=== PATIENT | female | born 1945 | race Caucasian/White ===

== ENCOUNTER → 2016-06-03 | Outpatient (CLI) | payer OTHER, BC ==
[2016-06-03 09:42] LABS: BASO % 0.4 %; BASO ABS # 0.02 K/uL (0-0.2); COMPLETE YES; EOS % 3.2 %; HEMATOCRIT 42.2 % (37-47); LYMPH ABS # 2.41 K/uL (1.2-3.4); MEAN CELL VOLUME 92.5 fL (80-100); MEAN CORPUSCULAR HEMOGLOBIN 31.6 pg (25-34); MEAN CORPUSCULAR HGB CONC 34.1 g/dl (32-36); MEAN PLATELET VOLUME 12.7 fL (7.4-10.4); MONO % 6.5 %; NEUT % 44.9 %; PLATELET COUNT 278 K/uL (130-400); RED BLOOD COUNT 4.56 M/uL (4.2-5.4); WHITE BLOOD COUNT 5.35 K/uL (4.8-10.8)
== END | disposition home or self-care (01) ==
LOC: C.LAB 08:22
PROVIDERS: ATTEND Internal Medicine Geriatric Medicine
DX: D72.819 Decreased white blood cell count, unspecified (principal)

== ENCOUNTER → 2016-10-14 | Outpatient (CLI) | payer OTHER, BC ==
[2016-10-14 09:35] LABS: BASO % 1.2 %; BASO ABS # 0.06 K/uL (0-0.2); COMPLETE YES; EOS % 4.2 %; HEMATOCRIT 42.9 % (37-47); LYMPH % 42.1 %; LYMPH ABS # 2.12 K/uL (1.2-3.4); MEAN CELL VOLUME 92.3 fL (80-100); MEAN CORPUSCULAR HEMOGLOBIN 30.8 pg (25-34); MEAN CORPUSCULAR HGB CONC 33.3 g/dl (32-36); MEAN PLATELET VOLUME 12.1 fL (7.4-10.4); NEUT % 47.5 %; PLATELET COUNT 289 K/uL (130-400); RED BLOOD COUNT 4.65 M/uL (4.2-5.4); WHITE BLOOD COUNT 5.04 K/uL (4.8-10.8)
[2016-10-14 09:51] LABS: ALT/SGPT 31 U/L (12-78); BLOOD UREA NITROGEN 20 mg/dl (7-18); BUN/CREATININE RATIO 25.1 (10-20); CALCIUM 9.5 mg/dl (8.5-10.1); CARBON DIOXIDE 25 mmol/L (21-32); CHLORIDE 110 mmol/L (98-107); CHOLESTEROL 184 mg/dl (0-200); CREATININE 0.78 mg/dl (0.60-1.20); GLUCOSE 103 mg/dl (70-99); POTASSIUM 4.4 mmol/L (3.5-5.1); SODIUM 143 mmol/L (136-145); TRIGLYCERIDES 69 mg/dl (0-150); VERY LOW DENSITY LIPOPROT CALC 14 mg/dl
[2016-10-14 10:02] LABS: ALKALINE PHOSPHATASE 77 U/L (45-117); AST/SGOT 20 U/L (15-37); CHOLESTEROL/HDL RATIO 3.2; HDL CHOLESTEROL 58 mg/dl; LDL CHOLESTEROL CALCULATED 112 mg/dl
--- NOTE | 2016-10-20 08:11 | CODING QUERY MEDICAL NECESSITY ---
SUPPORTING DIAGNOSIS NEEDED Dr. Castro, A supporting diagnosis is required for the test/procedure performed on this patient in order for us to be reimbursed by the patient's insurance. Please provide a supporting diagnosis for the following test/procedure listed below next to the test name along with your signature. *If there is no additional diagnosis for this patient that would support the following test/procedure please document that below next to the test/procedure. Test(s)/Procedure(s) that require a supporting diagnosis: * ([id number]) VITAMIN D ASSAY DIAGNOSIS: DATE OF SERVICE: 10/14/16 Provider Signature: Date: Thank you [facility] Information Management Once completed, please kindly fax back to [phone] For questions please call [phone]
== END | disposition home or self-care (01) ==
LOC: C.LAB 07:17
PROVIDERS: ATTEND Internal Medicine Geriatric Medicine
DX: I10 Essential (primary) hypertension (principal); E78.5 Hyperlipidemia, unspecified; D72.819 Decreased white blood cell count, unspecified; M81.0 Age-related osteoporosis without current pathological fracture

== ENCOUNTER → 2016-12-11 | Outpatient (CLI) | payer OTHER, BC | END | disposition home or self-care (01) | LOC: C.LABBC 14:33 | PROVIDERS: ATTEND Internal Medicine Geriatric Medicine | DX: Z00.00 Encounter for general adult medical examination without abnormal findings (principal) ==

== ENCOUNTER → 2017-01-06 | Outpatient (CLI) | payer OTHER, BC ==
[2017-01-06 15:20] LABS: CALCIUM URINE 8.4 mg/dl
[2017-01-07 17:09] LABS: ALBUMIN 4.2 G/DL (3.8-4.8); TOTAL PROTEIN 7.1 G/DL (6.2-8.3)
== END | disposition home or self-care (01) ==
LOC: C.LAB1850 06:55
PROVIDERS: ATTEND Internal Medicine Rheumatology
DX: M81.0 Age-related osteoporosis without current pathological fracture (principal); R13.10 Dysphagia, unspecified; M48.50XA Collapsed vertebra, not elsewhere classified, site unspecified, initial encounter for fracture; E61.8 Deficiency of other specified nutrient elements

== ENCOUNTER → 2017-02-25 | Outpatient (CLI) | payer OTHER, BC ==
[~2017-02-25] MED LIST: ACET-1311 PO; AMLO-114 PO; ATOR-22 PO; CALCCAP15 PO; CHOL1000 PO; IBUP-103 PO; LISI-725 PO; MULT-225 PO; PRLSR20 PO; TERI600S SQ; WHEACHW PO
== END | disposition home or self-care (01) ==
LOC: C.LABBC 14:04
PROVIDERS: ATTEND Internal Medicine Rheumatology
DX: E61.8 Deficiency of other specified nutrient elements (principal); M81.0 Age-related osteoporosis without current pathological fracture; M48.50XA Collapsed vertebra, not elsewhere classified, site unspecified, initial encounter for fracture; X58.XXXA Exposure to other specified factors, initial encounter

== ENCOUNTER 2020-07-20 16:02 | Inpatient (IN) ==
[2020-07-20] MEDS ORDERED: dexAMETHasone**PF** 10 MG/ML VIAL IV ONE (17:55)
--- NOTE | 2020-07-20 18:09 | XRay Report ---
XR chest 1V portable HISTORY: Dyspnea COMPARISON: Chest 07/16/2020. FINDINGS: No pneumothorax. No pleural effusions. The cardiac silhouette remains top normal in size. T here appears to be hazy airspace opacities within the right lower lobe and left midlung zone. This is consistent with a mild viral pneumonia. This is similar to prior study. IMPRESSION: Redemonstration of the faint airspace opacities consistent with a viral pneumonia. ACT 112: Negative or not required by law. Electronically signed by: Noam Sepulveda M.D. 07/20/2020 6:08 PM
[2020-07-20 18:15] LABS: Basophils # (auto) 0.01 K/uL (0-0.2); Basophils % (auto) 0.2 %; Eosinophils # (auto) 0.01 K/uL (0-0.5); Eosinophils % (auto) 0.2 %; Hematocrit (blood only) 40.2 % (37-47); Hemoglobin 14.5 g/dL (12.0-16.0); Immature Granulocytes # (auto) 0.01 K/uL (0.00-0.02); Immature Granulocytes % (auto) 0.2 %; Lymphocytes % (auto) 13.6 %; Mean Corpuscular Hgb Conc 36.1 g/dL (32-36); Mean Corpuscular Volume 88.7 fL (80-100); Mean Platelet Volume 11.1 fL (7.4-10.4); Monocytes # (auto) 0.46 K/uL (0.11-0.59); Monocytes % (auto) 7.8 %; Neutrophils # (auto) 4.61 K/uL (1.4-6.5); Platelet Count 261 K/uL (130-400); RDW Coefficient of Variation 12.8 % (11.5-14.5); RDW Standard Deviation 41.5 fL (36.4-46.3); Red Blood Count 4.53 M/uL (4.2-5.4)
[2020-07-20 18:30] LABS: Partial Thromboplastin Ratio 1.1; Partial Thromboplastin Time 28.1 Seconds (21.0-31.0); Prothrombin Time 9.8 Seconds (9.0-12.0)
[2020-07-20 18:35] LABS: D Dimer 840 ug/L FEU (0-500)
[2020-07-20 18:36] LABS: Alanine Aminotransferase 29 U/L (12-78); Albumin Level 3.1 gm/dl (3.4-5.0); Aspartate Aminotransferase 37 U/L (15-37); Blood Urea Nitrogen 14 mg/dl (7-18); Calcium 8.4 mg/dl (8.5-10.1); Carbon Dioxide 25 mmol/L (21-32); Chloride 105 mmol/L (98-107); Creatinine Clr Calc Pharmacy 54.2 ml/min; Est GFR (African American) 94.9; Est GFR (Non-African American) 81.9; Glucose 105 mg/dl (70-99); Potassium 3.6 mmol/L (3.5-5.1); Sodium 137 mmol/L (136-145)
[2020-07-20 18:41] LABS: Albumin Globulin Ratio 0.7 (0.9-2); Alkaline Phosphatase 85 U/L (45-117); Bilirubin,Total 0.6 mg/dl (0.2-1); Globulin 4.2 gm/dl (2.5-4.0); NT Pro B Type Natriuretic Pept 209 pg/ml (0-900); Total Protein 7.3 gm/dl (6.4-8.2); Troponin I < 0.015 ng/ml (0-0.045)
[2020-07-20 19:17] LABS: Influenza A virus by PCR Negative (Neg); Influenza B virus by PCR Negative (Neg); RSV by PCR Negative (Neg)
[2020-07-20] MEDS ORDERED: LEVALBUTEROL TARTRATE 15 GM HFA.AER.AD INH STA (19:36)
[2020-07-20 19:38] LABS: SARS CoV2 RNA(COVID-19) InHosp POSITIVE (Negative)
[2020-07-20 19:46] LABS: Magnesium 1.8 mg/dl (1.8-2.4)
[2020-07-20 20:09] LABS: Base Excess ABG 1.8 mEq/L (-9-1.8); HCO3 ABG 22 mmol/L (19-24); Oxygen Saturation ABG 97.3 % (90-95); PCO2 ABG 24 mmHg (35-46); PO2 ABG 80 mmHg (80-95)
--- NOTE | 2020-07-20 20:13 | History & Physical Report ---
Date of Service July 20, 2020 Assessment & Plan (1) Acute hypoxemic respiratory failure: Secondary to severe COVID-19 pneumonia with superimposed bacterial infection No overt sepsis for now hypertension, stable hyperlipidemia on statin Rx Medical telemetry Supplemental O2 Baseline ABG Decadron, Remdesivir (Patient was counseled regarding potential adverse effects from Remdesivir therapy and provided with patient education sheet. Patient also agreeable to convalescent plasma if warranted. Verbal consent obtained for blood product administration.) Doxycycline for complicated atypical pneumonia Pulmonary consult if without improvement. DVT prophylaxis. Lovenox subcu Full code Text document was generated using [employer] voice recognition software. It may contain grammatical or spelling errors. Kindly contact undersigned for clarification of any documentation item in question. History of Present Illness Chief Complaint: Low O2 on pulse ox, shortness of breath Primary Care Provider: Wendi Kenney MD History obtained from patient and records. Medical history significant for hypertension, hyperlipidemia, GERD, coronary artery calcification as per records. Patient was vacationing in [place] 2 weeks ago when she noted flulike symptoms, dry cough, body aches, nausea, poor appetite. Second outpatient COVID-19 test in [place] was positive. Patient and her drove home to [place] shortly after positive test resulted. Patient seen at the ER 4 days ago for worsening symptoms. Patient subsequently discharged home. Dry cough symptoms noted to be junky without chest pain. Worsening shortness of breath with low pulse ox of 80s at home. Patient returned to the ER this afternoon. IV Decadron administered at the ER. Medical History as above Surgical History : Breast reduction, BTL, tonsillectomy/adenoidectomy, left radius/ulna surgery, tibia fracture surgery, knee surgery Family History : Colon cancer, heart disease, throat cancer Personal/Social history : Non-smoker, occasional EtOH intake, retired schoolteacher Allergies Allergy/AdvReac Type Severity Reaction Status Date / Time adhesive tape AdvReac Mild skin Verified 07/20/20 18:06 sensitive shrimp AdvReac Mild itching Verified 07/20/20 18:06 Home Medications Medication Instructions Recorded Confirmed Type Benefiber Healthy Shape 0 g PO QAM 12/08/18 07/20/20 History amlodipine [Norvasc] 10 mg PO HS 12/08/18 07/20/20 History atorvastatin [Lipitor] 20 mg PO HS 12/08/18 07/20/20 History cholecalciferol (vitamin D3) 1,000 unit PO HS 12/08/18 07/20/20 History [Vitamin D3] latanoprost 1 drp OPB HS 12/08/18 07/20/20 History lisinopril 20 mg PO HS 12/08/18 07/20/20 History omeprazole magnesium [Prilosec OTC] 20 mg PO HS 12/08/18 07/20/20 History aspirin [Aspirin Low Dose] 81 mg PO HS 07/16/20 07/20/20 History Past Med/Surg History Medical History (Updated 07/20/20 @ 21:05 by Francesco Redd MD) Compression fracture LUMBAR AREA GERD (gastroesophageal reflux disease) Glaucoma Hyperlipidemia Hypertension Mitral valve prolapse "ECHO AUGUST 2018 WNL" Osteoporosis Surgical History History of bilateral tubal ligation History of cataract surgery left History of colonoscopy History of esophagogastroduodenoscopy (EGD) History of open reduction and internal fixation (ORIF) procedure LEFT WRIST (HARDWARE REMOVED) History of tonsillectomy and adenoidectomy History of tooth extraction Patellar fracture RT KNEE REPAIRED Family History Mother Family history of esophageal cancer Father Family hx of colon cancer Social History Smoking Status: Never smoker Second Hand Exposure: No; Hx Alcohol Use: Yes Alcohol type: other Hx Substance Use: No Preferred Language: Faroese Communication Ability: Effective Town Clerk Required: No Beliefs That Will Affect Care: None Current Living Situation: Spouse Feels Safe at Home: Yes Safety Concerns: Feels Safe At This Time Assistive Devices: Oxygen - Continuous Review of Systems Review of Systems: As per HPI, all 10 systems reviewed, all other ROS negative Physical Exam Physical Exam: GENERAL: Comfortable, pleasant, no respiratory distress SKIN: Normal color, warm HEENT: [employer] palpebral conjunctivae, no ptosis, moist buccal mucosa, nasal cannula in place NECK : Supple, no tenderness CHEST : Decreased breath sounds , no tenderness HEART : RRR, no obvious murmurs ABDOMEN: Some distention, nontender EXTREMITIES : Minimal LE swelling, no LE tenderness, no other conspicuous deformities noted NEUROLOGIC : Coherent, no facial asymmetry, no other gross focality Results & Data Results & Data ([facility]) Vital Signs (Past 12 Hours) Vital Signs Temp Pulse Resp BP Pulse Ox 07/20/20 19:00 80 17 128/76 95 07/20/20 18:30 78 19 117/61 95 07/20/20 18:00 82 16 129/67 97 07/20/20 17:30 94 H 21 124/74 93 07/20/20 16:20 36.5 C 95 H 20 124/76 94 Laboratory Results Laboratory Results WBC 5.90 K/uL (4.8-10.8) 07/20/20 17:57 RBC 4.53 M/uL (4.2-5.4) 07/20/20 17:57 Hgb 14.5 g/dL (12.0-16.0) 07/20/20 17:57 Hct 40.2 % (37-47) 07/20/20 17:57 MCV 88.7 fL (80-100) 07/20/20 17:57 MCH 32.0 pg (25-34) 07/20/20 17:57 MCHC 36.1 g/dL (32-36) H 07/20/20 17:57 RDW Std Deviation 41.5 fL (36.4-46.3) 07/20/20 17:57 RDW Coeff of Colleen 12.8 % (11.5-14.5) 07/20/20 17:57 Plt Count 261 K/uL (130-400) 07/20/20 17:57 MPV 11.1 fL (7.4-10.4) H 07/20/20 17:57 Immature Gran % (Auto) 0.2 % 07/20/20 17:57 Neut % (Auto) 78.0 % 07/20/20 17:57 Lymph % (Auto) 13.6 % 07/20/20 17:57 [place] % (Auto) 7.8 % 07/20/20 17:57 Eos % (Auto) 0.2 % 07/20/20 17:57 Baso % (Auto) 0.2 % 07/20/20 17:57 Neut # (Auto) 4.61 K/uL (1.4-6.5) 07/20/20 17:57 Lymph # (Auto) 0.80 K/uL (1.2-3.4) L 07/20/20 17:57 [place] # (Auto) 0.46 K/uL (0.11-0.59) 07/20/20 17:57 Eos # (Auto) 0.01 K/uL (0-0.5) 07/20/20 17:57 Baso # (Auto) 0.01 K/uL (0-0.2) 07/20/20 17:57 Immature Gran # (Auto) 0.01 K/uL (0.00-0.02) 07/20/20 17:57 PT 9.8 Seconds (9.0-12.0) 07/20/20 17:57 INR 1.0 (0.9-1.1) 07/20/20 17:57 APTT 28.1 Seconds (21.0-31.0) 07/20/20 17:57 PTT Ratio 1.1 07/20/20 17:57 D-Dimer 840 ug/L FEU (0-500) H* 07/20/20 17:57 Sodium 137 mmol/L (136-145) 07/20/20 17:57 Potassium 3.6 mmol/L (3.5-5.1) 07/20/20 17:57 Chloride 105 mmol/L (98-107) 07/20/20 17:57 Carbon Dioxide 25 mmol/L (21-32) 07/20/20 17:57 Anion Gap 7.0 (3-11) 07/20/20 17:57 BUN 14 mg/dl (7-18) 07/20/20 17:57 Creatinine 0.72 mg/dl (0.6-1.2) 07/20/20 17:57 Est Cr Clr Drug Dosing 54.2 ml/min 07/20/20 17:57 Est GFR ( Amer) 94.9 07/20/20 17:57 Est GFR (Non-Af Amer) 81.9 07/20/20 17:57 BUN/Creatinine Ratio 19.0 (10-20) 07/20/20 17:57 Glucose 105 mg/dl (70-99) H 07/20/20 17:57 Calcium 8.4 mg/dl (8.5-10.1) L 07/20/20 17:57 Magnesium 1.8 mg/dl (1.8-2.4) 07/20/20 17:57 Total Bilirubin 0.6 mg/dl (0.2-1) 07/20/20 17:57 AST 37 U/L (15-37) 07/20/20 17:57 ALT 29 U/L (12-78) 07/20/20 17:57 Alkaline Phosphatase 85 U/L (45-117) 07/20/20 17:57 Troponin I < 0.015 ng/ml (0-0.045) 07/20/20 17:57 NT-Pro-B Natriuret Pep 209 pg/ml (0-900) 07/20/20 17:57 Total Protein 7.3 gm/dl (6.4-8.2) 07/20/20 17:57 Albumin 3.1 gm/dl (3.4-5.0) L 07/20/20 17:57 Globulin 4.2 gm/dl (2.5-4.0) H 07/20/20 17:57 Albumin/Globulin Ratio 0.7 (0.9-2) L 07/20/20 17:57 COVID-19 Eval Order CovFluRsv at [facility] 07/20/20 17:30 SARS-CoV-2 (PCR) POSITIVE (Negative) A* 07/20/20 17:30 Influenza Type A (PCR) Negative (Neg) 07/20/20 17:30 Influenza Type B (PCR) Negative (Neg) 07/20/20 17:30 RSV (RT-PCR) Negative (Neg) 07/20/20 17:30 Impressions Chest X-Ray 07/20/20 17:05 XR chest 1V portable HISTORY: Dyspnea COMPARISON: Chest 07/16/2020. FINDINGS: No pneumothorax. No pleural effusions. The cardiac silhouette remains top normal in size. There appears to be hazy airspace opacities within the right lower lobe and left midlung zone. This is consistent with a mild viral pneumonia. This is similar to prior study. IMPRESSION: Redemonstration of the faint airspace opacities consistent with a viral pneumonia. ACT 112: Negative or not required by law. Electronically signed by: Noam Sepulveda M.D. 07/20/2020 6:[address] chest initial read: No pulmonary emboli are identified. No aneurysm or dissection. Heart is mildly enlarged. No pericardial effusion. 2.6 cm hiatal hernia. Moderate scattered interstitial infiltrates and linear densities throughout both lungs consistent with viral atypical pneumonia. No pneumothorax or pleural effusion is seen. EKG as per my interpretation : Rate 80, NSR, normal axis, T wave flattening septal leads
--- NOTE | 2020-07-20 20:14 | Emergency Department Note ---
Impression & Plan COVID-19, Hypoxia ED Provider Note INFORMANT: Patient ED PROVIDER(S): Rex Sarkar MD CHIEF COMPLAINT: Hypoxia PLAN: Disposition: Admitted Condition: Good Outpatient prescription management: none Referral: None MEDICAL DECISION MAKING: Patient presented to the emergency department noting hypoxia. Her oxygen saturation was as low as 88 % on her physical examination. She responded well to supplemental nasal cannula oxygen. She did feel much better with this. She was given IV Decadron. Chest x-ray was performed and does show findings consistent with a viral pneumonia process. Patient's CBC and chemistry panel are unremarkable. Troponin negative. EKG was unremarkable as well. The patient's D-dimer was mildly elevated CT PE study was performed. [facility] Triage Nursing notes reviewed and agree them. Prior medical records reviewed regarding her visit on July 16 Vital Signs: reviewed and remarkable for hypoxia Differential diagnosis: Complications of COVID-19 reactive airway disease, pneumonia, pneumothorax, COPD, CHF, infections, cardiac ischemia, pulmonary embolism, musculoskeletal, gastrointestinal, as well as other pathologies. Diagnostics interpreted by me: ECG: Twelve-lead ECG reveals a normal sinus rhythm at [address] elevation or depression. No PACs or PVCs. Normal axis and QRS. Cardiac Monitoring: Cardiac monitoring ordered by me: The patient was placed on continuous cardiac monitoring and observed. It revealed a normal sinus rhythm at 80 beats per minute without ectopy or evidence of dysrhythmia. Imaging studies: Chest x-ray shows a viral pneumonia process CT PE study pending. [facility] HPI: The patient is a 75 year old female who presents to the Emergency Room with complaints of hypoxia. This started today and is persisting. The patient was diagnosed with COVID-19 about 10 days ago. She contracted the disease in [place]. She returned home. She was seen in the ER on July 16. Her x-ray and oxygen saturations were adequate at that time. She went home with a pulse oximeter. Today she noted worsening symptoms and her pulse oximeter was as low as 86%.. The patient also notes the following associated symptoms, transient nausea. The patient has found no relieving factors. Current pain is rated as 0/10. Pt denies LOC, headache, fevers, chills, diaphoresis, visual changes, neck pain, chest pain, vomiting, abdominal pain, back pain, melena, hematochezia, urinary symptoms, numbness, weakness, lymphadenopathy, rash, or other complaints. ROS: See above HPI for pertinent positives & negatives. A total of 10 systems reviewed and were otherwise negative. PAST MEDICAL HISTORY:See Below , hypertension PAST SURGICAL HISTORY:See Below, FAMILY HISTORY:See Below SOCIAL HISTORY:See Below, HOME MEDICATIONS:See Below ALLERGIES:See Below VITALS:See Below PHYSICAL EXAMINATION: GENERAL: Awake, alert, mildly dyspneic-appearing, in no distress HENT: Normocephalic, atraumatic. Oropharynx unremarkable. EYES: Normal conjunctiva. Sclera non-icteric. NECK: Inspection normal. Non-tender. Supple. No nuchal rigidity. FROM. No masses. RESPIRATORY: Clear to auscultation. No wheezes. No rales. Mild increased respiratory effort. CARDIAC: Normal rate. Normal rhythm. No murmurs. No rubs. Extremities warm and well perfused. Pulses equal. No JVD. GI: Soft, non-distended. No tenderness to palpation. No rebound or guarding. No masses. RECTAL: Deferred. MUSCULOSKELETAL: Atraumatic. Chest examination reveals no tenderness. The back is symmetrical on inspection without obvious abnormality. There is no CVA tenderness to palpation. No joint edema. LOWER EXTREMITIES: Calves are equal size bilaterally and non-tender. No edema. No discoloration. NEURO: Normal sensorium. No sensory or motor deficits noted. SKIN: No rash or jaundice noted. Rex Sarkar MD Past Med/Surg History Medical History (Updated 07/20/20 @ 20:11 by Rex Sarkar MD) Compression fracture LUMBAR AREA GERD (gastroesophageal reflux disease) Glaucoma Hyperlipidemia Hypertension Mitral valve prolapse "ECHO AUGUST 2018 WNL" Osteoporosis Surgical History History of bilateral tubal ligation History of cataract surgery left History of colonoscopy History of esophagogastroduodenoscopy (EGD) History of open reduction and internal fixation (ORIF) procedure LEFT WRIST (HARDWARE REMOVED) History of tonsillectomy and adenoidectomy History of tooth extraction Patellar fracture RT KNEE REPAIRED Family History Mother Family history of esophageal cancer Father Family hx of colon cancer Social History Smoking Status: Never smoker Second Hand Exposure: No; Hx Alcohol Use: Yes Alcohol type: hard liquor Hx Substance Use: No Preferred Language: Korean Communication Ability: Effective 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 Beliefs That Will Affect Care: None Current Living Situation: Spouse Feels Safe at Home: Yes Assistive Devices: Glasses Allergies Allergies Allergy/AdvReac Type Severity Reaction Status Date / Time adhesive tape AdvReac Mild skin Verified 07/20/20 18:06 sensitive shrimp AdvReac Mild itching Verified 07/20/20 18:06 Home Meds Home Medications Medication Instructions Recorded Confirmed Benefiber Healthy Shape 0 g PO QAM 12/08/18 07/20/20 amlodipine [Norvasc] 10 mg PO HS 12/08/18 07/20/20 atorvastatin [Lipitor] 20 mg PO HS 12/08/18 07/20/20 cholecalciferol (vitamin D3) 1,000 unit PO HS 12/08/18 07/20/20 [Vitamin D3] latanoprost 1 drp OPB HS 12/08/18 07/20/20 lisinopril 20 mg PO HS 12/08/18 07/20/20 omeprazole magnesium [Prilosec OTC] 20 mg PO HS 12/08/18 07/20/20 aspirin [Aspirin Low Dose] 81 mg PO HS 07/16/20 07/20/20 Results & Data (ED) Vital Signs Vital Signs - 24 hr 07/20/20 16:20 07/20/20 17:30 07/20/20 18:00 Temperature 36.5 C Temperature Source Temporal Artery Scan Pulse Rate 95 H 94 H 82 Pulse Rate from SpO2 Sensor 94 H 82 Respiratory Rate 20 21 16 Respiratory Effort / Characteristics Non-Labored Respiratory Depth Normal Blood Pressure 124/76 124/74 129/67 Blood Pressure Mean 92 90 87 Pulse Oximetry 94 93 97 Oxygen Delivery Method Room Air Nasal Cannula Oxygen Flow Rate 2 Sepsis Recent Fever Within 48 Hours No Sepsis New/Unexplained Change in Mental Status N/A Sepsis Action Taken by Nursing No Action Required 07/20/20 18:30 07/20/20 19:00 Temperature Temperature Source Pulse Rate 78 80 Pulse Rate from SpO2 Sensor 79 80 Respiratory Rate 19 17 Respiratory Effort / Characteristics Respiratory Depth Blood Pressure 117/61 128/76 Blood Pressure Mean 79 93 Pulse Oximetry 95 95 Oxygen Delivery Method Oxygen Flow Rate Sepsis Recent Fever Within 48 Hours Sepsis New/Unexplained Change in Mental Status Sepsis Action Taken by Nursing Laboratory Data Result diagrams: 07/20/20 17:57 07/20/20 17:57 Lab Results 07/20/20 07/20/20 07/20/20 Range/Units 17:30 17:30 17:57 WBC 5.90 (4.8-10.8) K/uL RBC 4.53 (4.2-5.4) M/uL Hgb 14.5 (12.0-16.0) g/dL Hct 40.2 (37-47) % MCV 88.7 (80-100) fL MCH 32.0 (25-34) pg MCHC 36.1 H (32-36) g/dL RDW Std Deviation 41.5 (36.4-46.3) fL RDW Coeff of Colleen 12.8 (11.5-14.5) % Plt Count 261 (130-400) K/uL MPV 11.1 H (7.4-10.4) fL Immature Gran % (Auto) 0.2 % Neut % (Auto) 78.0 % Lymph % (Auto) 13.6 % [place] % (Auto) 7.8 % Eos % (Auto) 0.2 % Baso % (Auto) 0.2 % Neut # (Auto) 4.61 (1.4-6.5) K/uL Lymph # (Auto) 0.80 L (1.2-3.4) K/uL [place] # (Auto) 0.46 (0.11-0.59) K/uL Eos # (Auto) 0.01 (0-0.5) K/uL Baso # (Auto) 0.01 (0-0.2) K/uL Immature Gran # (Auto) 0.01 (0.00-0.02) K/uL PT (9.0-12.0) Seconds INR (0.9-1.1) APTT (21.0-31.0) Seconds PTT Ratio D-Dimer (0-500) ug/L FEU ABG pH (7.35-7.45) ABG pCO2 (35-46) mmHg ABG pO2 (80-95) mmHg ABG HCO3 (19-24) mmol/L ABG O2 Saturation (90-95) % ABG Base Excess (-9-1.8) mEq/L Dieter Test (Pos) Barometric Pressure mm/Hg Oxygen Given Sodium (136-145) mmol/L Potassium (3.5-5.1) mmol/L Chloride (98-107) mmol/L Carbon Dioxide (21-32) mmol/L Anion Gap (3-11) BUN (7-18) mg/dl Creatinine (0.6-1.2) mg/dl Est Cr Clr Drug Dosing ml/min Est GFR ( Amer) Est GFR (Non-Af Amer) BUN/Creatinine Ratio (10-20) Glucose (70-99) mg/dl Calcium (8.5-10.1) mg/dl Magnesium (1.8-2.4) mg/dl Total Bilirubin (0.2-1) mg/dl AST (15-37) U/L ALT (12-78) U/L Alkaline Phosphatase (45-117) U/L Troponin I (0-0.045) ng/ml NT-Pro-B Natriuret Pep (0-900) pg/ml Total Protein (6.4-8.2) gm/dl Albumin (3.4-5.0) gm/dl Globulin (2.5-4.0) gm/dl Albumin/Globulin Ratio (0.9-2) COVID-19 Eval Order CovFluRsv at [facility] SARS-CoV-2 (PCR) POSITIVE A* (Negative) Influenza Type A (PCR) Negative (Neg) Influenza Type B (PCR) Negative (Neg) RSV (RT-PCR) Negative (Neg) 07/20/20 07/20/20 07/20/20 Range/Units 17:57 17:57 19:53 WBC (4.8-10.8) K/uL RBC (4.2-5.4) M/uL Hgb (12.0-16.0) g/dL Hct (37-47) % MCV (80-100) fL MCH (25-34) pg MCHC (32-36) g/dL RDW Std Deviation (36.4-46.3) fL RDW Coeff of Colleen (11.5-14.5) % Plt Count (130-400) K/uL MPV (7.4-10.4) fL Immature Gran % (Auto) % Neut % (Auto) % Lymph % (Auto) % [place] % (Auto) % Eos % (Auto) % Baso % (Auto) % Neut # (Auto) (1.4-6.5) K/uL Lymph # (Auto) (1.2-3.4) K/uL [place] # (Auto) (0.11-0.59) K/uL Eos # (Auto) (0-0.5) K/uL Baso # (Auto) (0-0.2) K/uL Immature Gran # (Auto) (0.00-0.02) K/uL PT 9.8 (9.0-12.0) Seconds INR 1.0 (0.9-1.1) APTT 28.1 (21.0-31.0) Seconds PTT Ratio 1.1 D-Dimer 840 H* (0-500) ug/L FEU ABG pH 7.59 H* (7.35-7.45) ABG pCO2 24 L (35-46) mmHg ABG pO2 80 (80-95) mmHg ABG HCO3 22 (19-24) mmol/L ABG O2 Saturation 97.3 H (90-95) % ABG Base Excess 1.8 (-9-1.8) mEq/L Dieter Test POS (Pos) Barometric Pressure 726.0 mm/Hg Oxygen Given 2L O2 Sodium 137 (136-145) mmol/L Potassium 3.6 (3.5-5.1) mmol/L Chloride 105 (98-107) mmol/L Carbon Dioxide 25 (21-32) mmol/L Anion Gap 7.0 (3-11) BUN 14 (7-18) mg/dl Creatinine 0.72 (0.6-1.2) mg/dl Est Cr Clr Drug Dosing 54.2 ml/min Est GFR ( Amer) 94.9 Est GFR (Non-Af Amer) 81.9 BUN/Creatinine Ratio 19.0 (10-20) Glucose 105 H (70-99) mg/dl Calcium 8.4 L (8.5-10.1) mg/dl Magnesium 1.8 (1.8-2.4) mg/dl Total Bilirubin 0.6 (0.2-1) mg/dl AST 37 (15-37) U/L ALT 29 (12-78) U/L Alkaline Phosphatase 85 (45-117) U/L Troponin I < 0.015 (0-0.045) ng/ml NT-Pro-B Natriuret Pep 209 (0-900) pg/ml Total Protein 7.3 (6.4-8.2) gm/dl Albumin 3.1 L (3.4-5.0) gm/dl Globulin 4.2 H (2.5-4.0) gm/dl Albumin/Globulin Ratio 0.7 L (0.9-2) COVID-19 Eval Order SARS-CoV-2 (PCR) (Negative) Influenza Type A (PCR) (Neg) Influenza Type B (PCR) (Neg) RSV (RT-PCR) (Neg) Administered Medications Discontinued Medications Dexamethasone Sodium Phosphate (DexamethasonePf 10 Mg/Ml Vial) 6 mg IV NOW ONE Stop: 07/20/20 17:56 Last Admin: 07/20/20 18:05 Dose: 6 mg Documented by: [id number] Imaging Data Radiologist's Impression: Chest X-Ray 07/20/20 17:05 XR chest 1V portable HISTORY: Dyspnea COMPARISON: Chest 07/16/2020. FINDINGS: No pneumothorax. No pleural effusions. The cardiac silhouette remains top normal in size. There appears to be hazy airspace opacities within the right lower lobe and left midlung zone. This is consistent with a mild viral pneumonia. This is similar to prior study. IMPRESSION: Redemonstration of the faint airspace opacities consistent with a viral pneumonia. ACT 112: Negative or not required by law. Electronically signed by: Noam Sepulveda M.D. 07/20/2020 6:08 PM Discharge Plan Visit Data Chief Complaint: Illness Stated Complaint: PULSEOX WONT GO OVER 88 - COUGH - HEADACHE ED Provider: Rex Sarkar Discharge Problem: COVID-19, Hypoxia Forms Stand Alone Forms: My [facility] Prescriptions Prescriptions: No Action latanoprost 0.005 % Drops 1 drp OPB HS RF: 0 atorvastatin [Lipitor] 20 mg Tablet 20 mg PO HS RF: 0 lisinopril 20 mg Tablet 20 mg PO HS RF: 0 amlodipine [Norvasc] 10 mg Tablet 10 mg PO HS RF: 0 cholecalciferol (vitamin D3) [Vitamin D3] 1,000 unit Capsule 1,000 unit PO HS RF: 0 omeprazole magnesium [Prilosec OTC] 20 mg Tablet,Delayed Release (Dr/Ec) 20 mg PO HS RF: 0 Benefiber Healthy Shape 5 gram/7.4 gram Powder 0 g PO QAM RF: 0 aspirin [Aspirin Low Dose] 81 mg Tablet,Delayed Release (Dr/Ec) 81 mg PO HS RF: 0
[2020-07-20 20:20] LABS: Allen Test POS (Pos)
[2020-07-20 20:21] LABS: pH ABG 7.59 (7.35-7.45)
[2020-07-20] MEDS ORDERED: DOXYCYCLINE HYCLATE 100 MG in DEXTROSE 5% 100 ML IV ONE (20:30)
[2020-07-20 21:24] LABS: Appearance Urine Clear (Clear); Bacteria Urine Automated Negative (Negative); Bilirubin Urine 1+ (Negative); Blood Urine Negative (Negative); Color Urine Dark Yellow; Epithelial Cell Urine Auto >30 /lpf (0-5); Glucose Urine UA Negative (Negative); Ketones Urine 1+ (Negative); Leukocyte Esterase Urine Trace (Negative); Nitrite Urine Negative (Negative); Protein Urine 2+ (Negative); RBC Urine Automated 0-4 /hpf (0-4); Specific Gravity Urine 1.031 (1.000-1.030); Urobilinogen Urine Negative (Negative)
[2020-07-20 21:37] LABS: Renal Epithelial Cells Urine 0-5 /lpf (0-5)
[2020-07-20] MEDS ORDERED: OPTIRAY 320 125ml IV ONE (22:27)
[2020-07-20] MEDS ORDERED: ACETAMINOPHEN 325 MG TAB PO PRN (22:42)
[2020-07-20] MEDS ORDERED: PROMETHAZINE HCL 12.5 MG in SODIUM CHLORIDE 0.9% 50 ML IV PRN (22:42)
[2020-07-20] MEDS ORDERED: REMDESIVIR 200 MG in SODIUM CHLORIDE 0.9% 210 ML IV ONE (23:30)
[2020-07-20] MEDS: LATANOPROST 0.005% OP SOLN 2.5 ML BTL OPB SCH (23:40)
[2020-07-20] MEDS: ASPIRIN 81 MG ECTAB PO SCH (23:41)
[2020-07-20] MEDS: lisinopril 20 MG TAB PO SCH (23:42)
[2020-07-20] MEDS: PANTOprazole 40 MG TAB PO SCH (23:42)
[2020-07-20] MEDS: ATORVASTATIN 20 MG TAB PO SCH (23:42)
[2020-07-20] MEDS: amLODIPine BESYLATE 5 MG TAB PO SCH (23:42)
[2020-07-21] MEDS ORDERED: MAGNESIUM SULFATE / D5W 1 GM/100 ML BAG IV ONE (01:30)
[2020-07-21] MEDS ORDERED: POTASSIUM CHLORIDE 40 MEQ in SODIUM CHLORIDE 0.9% 1000ML 1,000 ML IV ONE (01:30)
[2020-07-21] MEDS: SODIUM CHLORIDE 0.9% 10ML FLUSH IV SCH ×2 (02:02→20:35)
[2020-07-21] MEDS ORDERED: LEVALBUTEROL TARTRATE 15 GM HFA.AER.AD INH STA (04:32)
[2020-07-21] MEDS: dexAMETHasone 6 MG in SYRINGE 0 ML IV SCH (05:31)
[2020-07-21 07:51] LABS: Basophils # (auto) 0.01 K/uL (0-0.2); Basophils % (auto) 0.3 %; Hematocrit (blood only) 38.8 % (37-47); Hemoglobin 13.8 g/dL (12.0-16.0); Immature Granulocytes # (auto) 0.01 K/uL (0.00-0.02); Immature Granulocytes % (auto) 0.3 %; Lymphocytes # (auto) 0.42 K/uL (1.2-3.4); Lymphocytes % (auto) 12.6 %; Mean Corpuscular Hemoglobin 31.4 pg (25-34); Mean Corpuscular Hgb Conc 35.6 g/dL (32-36); Mean Corpuscular Volume 88.4 fL (80-100); Mean Platelet Volume 11.1 fL (7.4-10.4); Monocytes # (auto) 0.13 K/uL (0.11-0.59); Monocytes % (auto) 3.9 %; Neutrophils # (auto) 2.77 K/uL (1.4-6.5); Neutrophils % (auto) 82.9 %; Platelet Count 282 K/uL (130-400); RDW Coefficient of Variation 12.8 % (11.5-14.5); RDW Standard Deviation 41.5 fL (36.4-46.3); Red Blood Count 4.39 M/uL (4.2-5.4); White Blood Count 3.34 K/uL (4.8-10.8)
[2020-07-21 07:52] LABS: Albumin Level 2.9 gm/dl (3.4-5.0); C Reactive Protein 8.4 mg/dl (0-0.29); Calcium 8.5 mg/dl (8.5-10.1); Creatinine Clr Calc Pharmacy 62.4 ml/min; Est GFR (African American) 101.7; Est GFR (Non-African American) 87.7; Potassium 3.2 mmol/L (3.5-5.1)
[2020-07-21] MEDS: LEVALBUTEROL TARTRATE 15 GM HFA.AER.AD INH SCH ×2 (07:52→11:49)
[2020-07-21 07:55] LABS: Albumin Globulin Ratio 0.7 (0.9-2); Bilirubin,Total 0.5 mg/dl (0.2-1); Ferritin 532.9 ng/ml (8-388); Total Protein 6.9 gm/dl (6.4-8.2)
[2020-07-21] MEDS: ENOXAPARIN INJ 40 MG/0.4 ML SYR SQ SCH (08:16)
[2020-07-21] MEDS: DOXYCYCLINE HYCLATE 100 MG CAP PO SCH ×2 (08:16→20:41)
--- NOTE | 2020-07-21 08:34 | XRay Report ---
XR chest 1V portable CLINICAL HISTORY: low o2 COMPARISON STUDY: Chest radiograph and chest CT July 20, 2020. FINDINGS: No pneumothorax or pleural effusion is noted. Lung volumes are at the lower limits of rico l. Cardiomediastinal silhouette is stable. Multifocal bilateral airspace opacities are again noted, a s shown on prior chest CT. IMPRESSION: Bilateral airspace opacities, similar to prior chest CT and increased from prior chest r adiograph. This is consistent with viral pneumonia. ACT 112: Negative or not required by law. Electronically signed by: Bryn Hernandez M.D. 07/21/2020 8:33 AM
--- NOTE | 2020-07-21 08:54 | CT Scan Report ---
CHEST CTA for PULMONARY ARTERIES CT DOSE: 218.37 mGy.cm HISTORY: Shortness of breath. +covid, +dimer, hypoxia TECHNIQUE: Multiaxial CT images of the chest were performed following the intravenous administration of contrast to evaluate the pulmonary arteries. Maximal intensity projection images were also obtaine d. A dose lowering technique was utilized adhering to the principles of ALARA. COMPARISON STUDY: Chest CT 02/17/2017. FINDINGS: Old moderate compression deformity at T5 is again noted. There is a small hiatus hernia. St able 1.3 cm hypodense lesion within the right hepatic lobe. This is likely benign given the long-term stability. No significant mediastinal or hilar lymphadenopathy. The heart remains mildly enlarged. N o pleural or pericardial effusions. Normal caliber thoracic aorta with no evidence for dissection. No filling defects within the pulmonary arteries to suggest pulmonary embolus. No suspicious lytic or b lastic osseous lesions. No pneumothorax. The central airways are patent. Multifocal groundglass airsp eve opacities consistent with a viral pneumonia. IMPRESSION: 1. No evidence for pulmonary embolus. 2. Multifocal groundglass airspace opacities. This favors a moderate viral pneumonia. ACT 112: Negative or not required by law. Electronically signed by: Noam Sepulveda M.D. 07/21/2020 8:53 AM
[2020-07-21] MEDS ORDERED: dexAMETHasone 6 MG in SYRINGE 0 ML IV SCH (09:00)
[2020-07-21] MEDS ORDERED: POTASSIUM CHLORIDE CRTAB 20 MEQ TABCR PO STA (09:13)
[2020-07-21] MEDS ORDERED: LEVALBUTEROL TARTRATE 15 GM HFA.AER.AD INH PRN (11:44)
--- NOTE | 2020-07-21 18:39 | Hospitalist Progress Note ---
Date of Service July 21, 2020 Assessment & Plan (1) Acute hypoxemic respiratory failure: COVID-19 pneumonia Present on admission with worsening SOB and hypoxia She said that she was tested positive for COVID 19 on 06/06 while in [place] CTA chest showed no evidence for pulmonary embolus. Multifocal groundglass airspace opacities. This favors a moderate viral pneumonia. CXR showed bilateral airspace opacities, similar to prior chest CT and increased from prior chest radiograph. Will continue dexamethasone 6mg Iv and remdesivir that started on admission Continue monitor LFT while on Remdesivir Not a candidate for Plasma convalescent since she was tested positive on 07/04 Doxycycline was starting as well in the ER for possible underlying superimposed bacterial infection Continue oxygen supplement Continue monitor closely Hypertension BP stable Continue amlodipine Hypokalemia K 3.2 today K replaced Continue monitor BMP DVT px on Lovenox subq CODE STATUS FULL CODE Admission and Anticipated Discharge Date Admission Date: July 20, 2020 Subjective Pt was seen and examined for follow up of SOB due to COVID 19 Lying in bed with no distress Pt said that her breathing feels much better with the oxygen She continues to require oxygen supplement She said that her has covid also and he is not feeling well and he is on his way to the ER for eval Denies any chest pain, palpitation, dizziness and fever Review of Systems Review of Systems: All systems reviewed & are unremarkable except as noted in Subjective Physical Exam Physical Exam: General- No acute distress Head- atraumatic Eyes- PERRL, EOMI, ENT- oropharynx clear Neck- supple, no JVD Lungs- diminished BS Heart- regular rhythm; no murmur Abdomen- normal bowel sounds, soft, nontender Extremities- no calf tenderness Neuro- alert, oriented x 3; PERRL, EOMI; no facial palsy; no dysarthria Skin- warm & dry Results & Data Results & Data ([facility]) Vital Signs (Past 12 Hours) Vital Signs Temp Pulse Pulse Resp BP Pulse Ox 07/21/20 16:01 36.8 C 86 14 109/66 93 07/21/20 15:31 109 H 07/21/20 12:05 36.3 C L 95 H 14 115/70 93 07/21/20 08:17 36.7 C 93 H 16 121/72 94 07/21/20 07:52 83 16 95 07/21/20 07:24 88
[2020-07-21] MEDS: REMDESIVIR 100 MG in SODIUM CHLORIDE 0.9% 230 ML IV SCH (19:31)
[2020-07-21] MEDS: ASPIRIN 81 MG ECTAB PO SCH (20:38)
[2020-07-21] MEDS: ATORVASTATIN 20 MG TAB PO SCH (20:39)
[2020-07-21] MEDS: amLODIPine BESYLATE 5 MG TAB PO SCH (20:39)
[2020-07-21] MEDS: PANTOprazole 40 MG TAB PO SCH (20:40)
[2020-07-21] MEDS: LATANOPROST 0.005% OP SOLN 2.5 ML BTL OPB SCH (20:41)
[2020-07-21] MEDS: lisinopril 20 MG TAB PO SCH (20:42)
--- NOTE | 2020-07-22 06:29 | Electrocardiogram Report ---
Test Reason : Blood Pressure : / mmHG Vent. Rate : 082 BPM Atrial Rate : 082 BPM P-R Int : 146 ms QRS Dur : 078 ms QT Int : 374 ms P-R-T Axes : 057 -22 066 degrees QTc Int : 436 ms Poor data quality, interpretation may be adversely affected Normal sinus rhythm Normal ECG When compared with ECG of 05-JUL-2006 09:32, No significant change was found Confirmed by David Plunkett ([id number]) on 07/22/2020 6:29:17 AM Referred By: Wendi Kenney Confirmed By:David Plunkett
[2020-07-22] MEDS: ENOXAPARIN INJ 40 MG/0.4 ML SYR SQ SCH (08:34)
[2020-07-22] MEDS: DOXYCYCLINE HYCLATE 100 MG CAP PO SCH ×2 (08:34→20:03)
[2020-07-22] MEDS: dexAMETHasone 6 MG in SYRINGE 0 ML IV SCH (08:34)
[2020-07-22 08:42] LABS: Albumin Level 2.9 gm/dl (3.4-5.0); BUN Creatinine Ratio 33.4 (10-20); C Reactive Protein 3.83 mg/dl (0-0.29); Calcium 8.5 mg/dl (8.5-10.1); Creatinine Clr Calc Pharmacy 59.3 ml/min; Est GFR (African American) 100.2; Est GFR (Non-African American) 86.4
[2020-07-22 08:48] LABS: Albumin Globulin Ratio 0.8 (0.9-2); Bilirubin,Total 0.5 mg/dl (0.2-1); Ferritin 511.8 ng/ml (8-388); Globulin 3.7 gm/dl (2.5-4.0); Total Protein 6.6 gm/dl (6.4-8.2)
--- NOTE | 2020-07-22 19:02 | Hospitalist Progress Note ---
Date of Service July 22, 2020 Assessment & Plan (1) Acute hypoxemic respiratory failure: COVID-19 pneumonia Present on admission with worsening SOB and hypoxia She said that she was tested positive for COVID 19 on 06/06 while in [place] CTA chest showed no evidence for pulmonary embolus. Multifocal groundglass airspace opacities. This favors a moderate viral pneumonia. CXR showed bilateral airspace opacities, similar to prior chest CT and increased from prior chest radiograph. Will continue dexamethasone 6mg Iv and remdesivir that started on admission Continue monitor LFT while on Remdesivir Not a candidate for Plasma convalescent since she was tested positive on 07/04 Doxycycline was starting as well in the ER for possible underlying superimposed bacterial infection Inflammatory markers trending down with ferritin 532-->511, ESR 29 -->26, CRP 8.3-->3.8 Continue oxygen supplement Continue monitor closely Hypertension BP stable Continue amlodipine Hypokalemia K 4 today Continue monitor BMP DVT px on Lovenox subq CODE STATUS FULL CODE Admission and Anticipated Discharge Date Admission Date: July 20, 2020 Subjective Pt was seen and examined for follow up of SOB due to COVID 19 Lying in bed with no distress She said that she feels much better today She continues to require oxygen supplement Denies any chest pain, palpitation, dizziness and fever Review of Systems Review of Systems: All systems reviewed & are unremarkable except as noted in Subjective Physical Exam Physical Exam: General- No acute distress Head- atraumatic Eyes- PERRL, EOMI, ENT- oropharynx clear Neck- supple, no JVD Lungs- diminished BS Heart- regular rhythm; no murmur Abdomen- normal bowel sounds, soft, nontender Extremities- no calf tenderness Neuro- alert, oriented x 3; PERRL, EOMI; no facial palsy; no dysarthria Skin- warm & dry Results & Data Results & Data ([facility]) Vital Signs (Past 12 Hours) Vital Signs Temp Pulse Pulse Resp BP Pulse Ox 07/22/20 17:02 90 07/22/20 17:00 93 07/22/20 16:39 36.4 C L 74 18 115/72 93 07/22/20 12:30 36.6 C 89 20 106/68 94 07/22/20 09:57 82 07/22/20 07:34 36.8 C 84 20 111/73 92
[2020-07-22] MEDS ORDERED: FUROSEMIDE 20 MG in SYRINGE 0 ML IV ONE (19:15)
[2020-07-22] MEDS: REMDESIVIR 100 MG in SODIUM CHLORIDE 0.9% 230 ML IV SCH (19:56)
[2020-07-22] MEDS: LATANOPROST 0.005% OP SOLN 2.5 ML BTL OPB SCH (19:59)
[2020-07-22] MEDS: ATORVASTATIN 20 MG TAB PO SCH (20:00)
[2020-07-22] MEDS: ASPIRIN 81 MG ECTAB PO SCH (20:00)
[2020-07-22] MEDS: PANTOprazole 40 MG TAB PO SCH (20:01)
[2020-07-22] MEDS: amLODIPine BESYLATE 5 MG TAB PO SCH (20:01)
[2020-07-22] MEDS: lisinopril 20 MG TAB PO SCH (20:03)
[2020-07-22] MEDS: SODIUM CHLORIDE 0.9% 10ML FLUSH IV SCH (21:09)
[2020-07-23 07:47] LABS: Albumin Level 2.8 gm/dl (3.4-5.0); BUN Creatinine Ratio 34.8 (10-20); Calcium 8.2 mg/dl (8.5-10.1); Creatinine Clr Calc Pharmacy 56.7 ml/min; Est GFR (African American) 98.2; Est GFR (Non-African American) 84.8; Potassium 3.7 mmol/L (3.5-5.1)
[2020-07-23 07:51] LABS: Albumin Globulin Ratio 0.7 (0.9-2); Bilirubin,Total 0.6 mg/dl (0.2-1); C Reactive Protein 2.24 mg/dl (0-0.29); Ferritin 477.4 ng/ml (8-388); Globulin 4.1 gm/dl (2.5-4.0); Total Protein 6.9 gm/dl (6.4-8.2)
[2020-07-23] MEDS: ENOXAPARIN INJ 40 MG/0.4 ML SYR SQ SCH (08:10)
[2020-07-23] MEDS: dexAMETHasone 6 MG in SYRINGE 0 ML IV SCH (08:10)
[2020-07-23] MEDS: DOXYCYCLINE HYCLATE 100 MG CAP PO SCH ×2 (08:10→20:24)
--- NOTE | 2020-07-23 18:34 | Hospitalist Progress Note ---
Date of Service July 23, 2020 Assessment & Plan (1) Acute hypoxemic respiratory failure: COVID-19 pneumonia Present on admission with worsening SOB and hypoxia She said that she was tested positive for COVID 19 on 06/06 while in [place] CTA chest showed no evidence for pulmonary embolus. Multifocal groundglass airspace opacities. This favors a moderate viral pneumonia. CXR showed bilateral airspace opacities, similar to prior chest CT and increased from prior chest radiograph. Will continue dexamethasone 6mg Iv and remdesivir that started on admission Continue monitor LFT while on Remdesivir Not a candidate for Plasma convalescent since she was tested positive on 07/04 Doxycycline was starting as well in the ER for possible underlying superimposed bacterial infection Inflammatory markers trending down with ferritin 532-->511--> 477, ESR 29 -->26, CRP 8.3-->3.8 -->2.2 Continue oxygen supplement Currently on 1L [place], continue wean off the oxygen Might need 2 step exercise on discharge Continue monitor closely Hypertension BP stable Continue amlodipine Hypokalemia K 3.7 today Continue monitor BMP DVT px on Lovenox subq CODE STATUS FULL CODE Disposition Possible discharge tomorrow Admission and Anticipated Discharge Date Admission Date: July 20, 2020 Subjective Pt was seen and examined for follow up of SOB due to COVID 19 Lying in bed with no distress She said that she feels much better today her oxygen has been titrated, i titrated it to 1L [place] Denies any chest pain, palpitation, dizziness and fever Review of Systems Review of Systems: All systems reviewed & are unremarkable except as noted in Subjective Physical Exam Physical Exam: General- No acute distress Head- atraumatic Eyes- PERRL, EOMI, ENT- oropharynx clear Neck- supple, no JVD Lungs- diminished BS Heart- regular rhythm; no murmur Abdomen- normal bowel sounds, soft, nontender Extremities- no calf tenderness Neuro- alert, oriented x 3; PERRL, EOMI; no facial palsy; no dysarthria Skin- warm & dry Results & Data Results & Data ([facility]) Vital Signs (Past 12 Hours) Vital Signs Temp Pulse Resp BP Pulse Ox 07/23/20 15:27 36.7 C 78 18 103/66 93 07/23/20 12:13 36.5 C 72 16 110/70 93
[2020-07-23] MEDS: REMDESIVIR 100 MG in SODIUM CHLORIDE 0.9% 230 ML IV SCH (20:20)
[2020-07-23] MEDS: LATANOPROST 0.005% OP SOLN 2.5 ML BTL OPB SCH (20:21)
[2020-07-23] MEDS: ATORVASTATIN 20 MG TAB PO SCH (20:22)
[2020-07-23] MEDS: ASPIRIN 81 MG ECTAB PO SCH (20:22)
[2020-07-23] MEDS: PANTOprazole 40 MG TAB PO SCH (20:23)
[2020-07-23] MEDS: lisinopril 20 MG TAB PO SCH (20:24)
[2020-07-23] MEDS: amLODIPine BESYLATE 5 MG TAB PO SCH (20:28)
[2020-07-23] MEDS: SODIUM CHLORIDE 0.9% 10ML FLUSH IV SCH (21:32)
[2020-07-24 06:12] LABS: Hematocrit (blood only) 40.1 % (37-47); Mean Corpuscular Hemoglobin 31.2 pg (25-34); Mean Corpuscular Hgb Conc 34.9 g/dL (32-36); Mean Corpuscular Volume 89.3 fL (80-100); Mean Platelet Volume 10.9 fL (7.4-10.4); Platelet Count 408 K/uL (130-400); RDW Coefficient of Variation 13.3 % (11.5-14.5); RDW Standard Deviation 43.7 fL (36.4-46.3); Red Blood Count 4.49 M/uL (4.2-5.4); White Blood Count 8.92 K/uL (4.8-10.8)
[2020-07-24 06:43] LABS: Albumin Globulin Ratio 0.7 (0.9-2); Albumin Level 2.7 gm/dl (3.4-5.0); BUN Creatinine Ratio 36.9 (10-20); Bilirubin,Total 0.5 mg/dl (0.2-1); Calcium 8.2 mg/dl (8.5-10.1); Creatinine Clr Calc Pharmacy 68.4 ml/min; Est GFR (African American) 104.5; Est GFR (Non-African American) 90.2; Globulin 3.8 gm/dl (2.5-4.0); Potassium 4.2 mmol/L (3.5-5.1); Total Protein 6.5 gm/dl (6.4-8.2)
[2020-07-24] MEDS: ENOXAPARIN INJ 40 MG/0.4 ML SYR SQ SCH (08:27)
[2020-07-24] MEDS: DOXYCYCLINE HYCLATE 100 MG CAP PO SCH ×2 (08:27→21:29)
[2020-07-24] MEDS: dexAMETHasone 6 MG in SYRINGE 0 ML IV SCH (08:27)
--- NOTE | 2020-07-24 09:16 | Hospitalist Progress Note ---
Date of Service July 24, 2020 Assessment & Plan (1) Acute hypoxemic respiratory failure: COVID-19 pneumonia Present on admission with worsening SOB and hypoxia She said that she was tested positive for COVID 19 at the end of June while in [place] Was in [place] since March Was not able to get vaccinated for COVID yet CTA chest showed no evidence for pulmonary embolus. Multifocal groundglass airspace opacities. This favors a moderate viral pneumonia. CXR showed bilateral airspace opacities, similar to prior chest CT and increased from prior chest radiograph. Will continue dexamethasone 6mg IV and remdesivir that started on admission Continue monitor LFT while on Remdesivir Not a candidate for Plasma convalescent since she was tested positive on 07/04 Doxycycline was starting as well in the ER for possible underlying superimposed bacterial infection Inflammatory markers trending down with ferritin 532-->511--> 477, ESR 29 -->26, CRP 8.3-->3.8 -->2.2 Continue oxygen supplement Currently on RA, continue wean off the oxygen 2 step exercise test and nocturnal pulse ox ordered Plan for discharge tomorrow Hypertension BP stable Continue amlodipine Hypokalemia Now resolved Continue monitor BMP DVT px on Lovenox subq CODE STATUS FULL CODE Disposition Possible discharge tomorrow Admission and Anticipated Discharge Date Admission Date: July 20, 2020 Subjective Pt was seen and examined for follow up of SOB due to COVID 19 She is sitting up in bed in no distress , comfortable She said that she feels much better today She is currently on RA, but this AM was on 3L, says she was off O2 yesterday afternoon Seems she may need O2 at night She is eager to be discharged tomorrow Will obtain 2 step and nocturnal puls ox Denies any chest pain, palpitation, dizziness and fever Possible DC tomorrow Review of Systems Review of Systems: All systems reviewed & are unremarkable except as noted in HPI & below Constitutional: no fever and no chills Respiratory: no cough and no dyspnea Cardiovascular: no chest pain and no palpitations Gastrointestinal: no abdominal pain, no nausea and no vomiting Physical Exam Physical Exam: General- WD/WN female, No acute distress Head- atraumatic Eyes- PERRL, EOMI, ENT- oropharynx clear Neck- supple, no JVD Lungs- CTAB, no wheezing, rhonchi, crackles Heart- regular rhythm; no murmur Abdomen- normal bowel sounds, soft, nontender Extremities- no calf tenderness Neuro- alert, oriented x 3; PERRL, EOMI; no facial palsy; no dysarthria, moves extremities Skin- warm & dry Results & Data Results & Data ([facility]) Vital Signs (Past 12 Hours) Vital Signs Temp Pulse Pulse Resp BP Pulse Ox 07/24/20 07:47 36.3 C L 85 20 136/82 96 07/24/20 00:10 63 07/23/20 23:50 36.5 C 67 18 112/75 94 Laboratory Results 07/24/20 07/24/20 Range/Units 05:48 05:48 WBC 8.92 (4.8-10.8) K/uL RBC 4.49 (4.2-5.4) M/uL Hgb 14.0 (12.0-16.0) g/dL Hct 40.1 (37-47) % MCV 89.3 (80-100) fL MCH 31.2 (25-34) pg MCHC 34.9 (32-36) g/dL RDW Std Deviation 43.7 (36.4-46.3) fL RDW Coeff of Colleen 13.3 (11.5-14.5) % Plt Count 408 H (130-400) K/uL MPV 10.9 H (7.4-10.4) fL Sodium 141 (136-145) mmol/L Potassium 4.2 (3.5-5.1) mmol/L Chloride 110 H (98-107) mmol/L Carbon Dioxide 27 (21-32) mmol/L Anion Gap 4.0 (3-11) BUN 21 H (7-18) mg/dl Creatinine 0.58 L (0.6-1.2) mg/dl Est Cr Clr Drug Dosing 68.4 ml/min Est GFR ( Amer) 104.5 Est GFR (Non-Af Amer) 90.2 BUN/Creatinine Ratio 36.9 H (10-20) Glucose 122 H (70-99) mg/dl Calcium 8.2 L (8.5-10.1) mg/dl Total Bilirubin 0.5 (0.2-1) mg/dl AST 36 (15-37) U/L ALT 46 (12-78) U/L Alkaline Phosphatase 82 (45-117) U/L Total Protein 6.5 (6.4-8.2) gm/dl Albumin 2.7 L (3.4-5.0) gm/dl Globulin 3.8 (2.5-4.0) gm/dl Albumin/Globulin Ratio 0.7 L (0.9-2) Medications Administered Current Inpatient Medications Acetaminophen (Acetaminophen 325 Mg Tab) 650 mg PO Q4H PRN PRN Reason: Pain or Fever Stop: 08/19/20 22:41 Amlodipine Besylate (Amlodipine Besylate 5 Mg Tab) 10 mg PO HS [facility] Stop: 08/19/20 22:41 Last Admin: 07/23/20 20:28 Dose: 10 mg Documented by: Aspirin (Aspirin 81 Mg Ectab) [address] [facility] Stop: 08/19/20 22:41 Last Admin: 07/23/20 20:22 Dose: 81 mg Documented by: Atorvastatin Calcium (Atorvastatin 20 Mg Tab) [address] [facility] Stop: 08/19/20 22:41 Last Admin: 07/23/20 20:22 Dose: 20 mg Documented by: Doxycycline Hyclate (Doxycycline Hyclate 100 Mg Cap) [address] [facility] Stop: 07/28/20 08:59 Last Admin: 07/24/20 08:27 Dose: 100 mg Documented by: Enoxaparin Sodium (Enoxaparin Inj 40 Mg/0.4 Ml Syr) [address] [facility] Stop: 08/20/20 08:59 Last Admin: 07/24/20 08:27 Dose: 40 mg Documented by: Promethazine HCl 12.5 mg/ (Sodium Chloride) 50.5 mls @ 202 mls/hr IV Q6H PRN PRN Reason: Nausea And Vomiting Stop: 08/19/20 22:41 Remdesivir 100 mg/ Sodium (Chloride) 250 mls @ 250 mls/hr IV Q24H [facility]; Protocol Stop: 07/24/20 20:59 Last Infusion: 07/23/20 21:32 Dose: Infused Documented by: Dexamethasone 6 mg/ Syringe 1.5 mls @ 1 mls/min IV DAILY [facility] Stop: 08/20/20 04:44 Last Admin: 07/24/20 08:27 Dose: 1 mls/min Documented by: Latanoprost (Latanoprost 0.005% Op Soln 2.5 Ml Btl) 1 drops OPB HS [facility] Stop: 08/19/20 22:41 Last Admin: 07/23/20 20:21 Dose: 1 drops Documented by: Levalbuterol HCl (Levalbuterol Tartrate 15 Gm Hfa.Aer.Ad) 2 puffs INH QIDR PRN PRN Reason: Shortness Of Breath Or Wheezing Stop: 08/20/20 06:59 Lisinopril (Lisinopril 20 Mg Tab) 20 mg PO [facility] Stop: 08/19/20 22:41 Last Admin: 07/23/20 20:24 Dose: 20 mg Documented by: Pantoprazole Sodium (Pantoprazole 40 Mg Tab) 20 mg PO [facility] Stop: 08/19/20 22:41 Last Admin: 07/23/20 20:23 Dose: 20 mg Documented by: Sodium Chloride (Sodium Chloride 0.9% 10ml Flush) 30 ml IV Q24H [facility] Stop: 07/24/20 23:31 Last Admin: 07/23/20 21:32 Dose: 30 ml Documented by:
[2020-07-24] MEDS: REMDESIVIR 100 MG in SODIUM CHLORIDE 0.9% 230 ML IV SCH (19:51)
[2020-07-24] MEDS: SODIUM CHLORIDE 0.9% 10ML FLUSH IV SCH (19:52)
[2020-07-24] MEDS: ASPIRIN 81 MG ECTAB PO SCH (21:27)
[2020-07-24] MEDS: ATORVASTATIN 20 MG TAB PO SCH (21:27)
[2020-07-24] MEDS: amLODIPine BESYLATE 5 MG TAB PO SCH (21:28)
[2020-07-24] MEDS: PANTOprazole 40 MG TAB PO SCH (21:28)
[2020-07-24] MEDS: LATANOPROST 0.005% OP SOLN 2.5 ML BTL OPB SCH (21:29)
[2020-07-24] MEDS: lisinopril 20 MG TAB PO SCH (21:29)
--- NOTE | 2020-07-25 07:52 | Hospitalist Progress Note ---
Date of Service July 25, 2020 Assessment & Plan (1) Acute hypoxemic respiratory failure: COVID-19 pneumonia Present on admission with worsening SOB and hypoxia She said that she was tested positive for COVID 19 at the end of June while in [place] Was in [place] since March Was not able to get vaccinated for COVID yet CTA chest showed no evidence for pulmonary embolus. Multifocal groundglass airspace opacities. This favors a moderate viral pneumonia. CXR showed bilateral airspace opacities, similar to prior chest CT and increased from prior chest radiograph. Will continue dexamethasone 6mg IV and remdesivir that started on admission Continue monitor LFT while on Remdesivir Not a candidate for Plasma convalescent since she was tested positive on 07/04 Doxycycline was starting as well in the ER for possible underlying superimposed bacterial infection Inflammatory markers trending down with ferritin 532-->511--> 477, ESR 29 -->26, CRP 8.3-->3.8 -->2.2 Continue oxygen supplement as needed Currently on RA But needs O2 at night, nocturnal pulse ox obtained Plan for discharge today Hypertension BP stable Continue amlodipine Hypokalemia Now resolved Continue monitor BMP DVT px on Lovenox subq CODE STATUS FULL CODE Disposition discharge home today Admission and Anticipated Discharge Date Admission Date: July 20, 2020 Subjective Pt was seen and examined for follow up of SOB due to COVID 19 She is sitting up in bed in no distress , comfortable She says she feels great today and inquiring about DC home She is currently on RA However she has nocturnal hypoxia and will need O2 at HS on discharge Denies any chest pain, palpitation, dizziness and fever Review of Systems Review of Systems: All systems reviewed & are unremarkable except as noted in HPI & below Constitutional: no fever and no chills Respiratory: no cough and no dyspnea Cardiovascular: no chest pain and no palpitations Gastrointestinal: no abdominal pain, no nausea and no vomiting Physical Exam Physical Exam: General- WD/WN female, No acute distress Head- atraumatic Eyes- PERRL, EOMI, ENT- oropharynx clear Neck- supple, no JVD Lungs- CTAB, no wheezing, rhonchi, crackles Heart- regular rhythm; no murmur Abdomen- normal bowel sounds, soft, nontender Extremities- no calf tenderness Neuro- alert, oriented x 3; PERRL, EOMI; no facial palsy; no dysarthria, moves extremities Skin- warm & dry Results & Data Results & Data ([facility]) Vital Signs (Past 12 Hours) Vital Signs Temp Pulse Pulse Pulse Resp BP Pulse Ox 07/25/20 07:42 36.8 C 67 20 105/67 91 07/25/20 04:00 36.6 C 94 H 20 108/66 95 07/25/20 00:00 81 07/24/20 23:00 36.7 C 81 20 123/76 92 07/24/20 22:10 83 Pulse Ox 07/25/20 07:42 07/25/20 04:00 07/25/20 00:00 07/24/20 23:00 07/24/20 22:10 96 Laboratory Results 07/25/20 Range/Units 07:42 Sodium 139 (136-145) mmol/L Potassium 3.8 (3.5-5.1) mmol/L Chloride 108 H (98-107) mmol/L Carbon Dioxide 26 (21-32) mmol/L Anion Gap 5.0 (3-11) BUN 18 (7-18) mg/dl Creatinine 0.61 (0.6-1.2) mg/dl Est Cr Clr Drug Dosing 64.8 ml/min Est GFR ( Amer) 102.8 Est GFR (Non-Af Amer) 88.7 BUN/Creatinine Ratio 29.0 H (10-20) Glucose 113 H (70-99) mg/dl Calcium 8.6 (8.5-10.1) mg/dl Magnesium 2.3 (1.8-2.4) mg/dl Medications Administered Current Inpatient Medications Acetaminophen (Acetaminophen 325 Mg Tab) 650 mg PO Q4H PRN PRN Reason: Pain or Fever Stop: 08/19/20 22:41 Amlodipine Besylate (Amlodipine Besylate 5 Mg Tab) 10 mg PO HS [facility] Stop: 08/19/20 22:41 Last Admin: 07/24/20 21:28 Dose: 10 mg Documented by: Aspirin (Aspirin 81 Mg Ectab) 81 mg PO HS [facility] Stop: 08/19/20 22:41 Last Admin: 07/24/20 21:27 Dose: 81 mg Documented by: Atorvastatin Calcium (Atorvastatin 20 Mg Tab) 20 mg PO HS [facility] Stop: 08/19/20 22:41 Last Admin: 07/24/20 21:27 Dose: 20 mg Documented by: Doxycycline Hyclate (Doxycycline Hyclate 100 Mg Cap) 100 mg PO BID [facility] Stop: 07/28/20 08:59 Last Admin: 07/25/20 08:21 Dose: 100 mg Documented by: Enoxaparin Sodium (Enoxaparin Inj 40 Mg/0.4 Ml Syr) 40 mg SQ QAM [facility] Stop: 08/20/20 08:59 Last Admin: 07/25/20 08:21 Dose: 40 mg Documented by: Promethazine HCl 12.5 mg/ (Sodium Chloride) 50.5 mls @ 202 mls/hr IV Q6H PRN PRN Reason: Nausea And Vomiting Stop: 08/19/20 22:41 Dexamethasone 6 mg/ Syringe 1.5 mls @ 1 mls/min IV DAILY [facility] Stop: 08/20/20 04:44 Last Admin: 07/25/20 08:21 Dose: 1 mls/min Documented by: Latanoprost (Latanoprost 0.005% Op Soln 2.5 Ml Btl) 1 drops OPB [facility] Stop: 08/19/20 22:41 Last Admin: 07/24/20 21:29 Dose: 1 drops Documented by: Levalbuterol HCl (Levalbuterol Tartrate 15 Gm Hfa.Aer.Ad) 2 puffs INH QIDR PRN PRN Reason: Shortness Of Breath Or Wheezing Stop: 08/20/20 06:59 Lisinopril (Lisinopril 20 Mg Tab) 20 mg PO [facility] Stop: 08/19/20 22:41 Last Admin: 07/24/20 21:29 Dose: 20 mg Documented by: Pantoprazole Sodium (Pantoprazole 40 Mg Tab) 20 mg PO [facility] Stop: 08/19/20 22:41 Last Admin: 07/24/20 21:28 Dose: 20 mg Documented by:
[2020-07-25] MEDS: dexAMETHasone 6 MG in SYRINGE 0 ML IV SCH (08:21)
[2020-07-25] MEDS: DOXYCYCLINE HYCLATE 100 MG CAP PO SCH (08:21)
[2020-07-25] MEDS: ENOXAPARIN INJ 40 MG/0.4 ML SYR SQ SCH (08:21)
[2020-07-25 08:29] LABS: Calcium 8.6 mg/dl (8.5-10.1); Creatinine Clr Calc Pharmacy 64.8 ml/min; Est GFR (African American) 102.8; Est GFR (Non-African American) 88.7; Magnesium 2.3 mg/dl (1.8-2.4); Potassium 3.8 mmol/L (3.5-5.1)
--- NOTE | 2020-07-25 13:18 | Discharge Summary ---
Date of Service July 25, 2020 Admission HPI Per Admitting Provider History obtained from patient and records. Medical history significant for hypertension, hyperlipidemia, GERD, coronary artery calcification as per records. Patient was vacationing in [place] 2 weeks ago when she noted flulike symptoms, dry cough, body aches, nausea, poor appetite. Second outpatient COVID-19 test in [place] was positive. Patient and her drove home to [place] shortly after positive test resulted. Patient seen at the ER 4 days ago for worsening symptoms. Patient subsequently discharged home. Dry cough symptoms noted to be junky without chest pain. Worsening shortness of breath with low pulse ox of 80s at home. Patient returned to the ER this afternoon. IV Decadron administered at the ER. Medical History as above Surgical History : Breast reduction, BTL, tonsillectomy/adenoidectomy, left radius/ulna surgery, tibia fracture surgery, knee surgery Family History : Colon cancer, heart disease, throat cancer Personal/Social history : Non-smoker, occasional EtOH intake, retired schoolteacher Admission Exam Per Admitting Provider GENERAL: Comfortable, pleasant, no respiratory distress SKIN: Normal color, warm HEENT: [place] palpebral conjunctivae, no ptosis, moist buccal mucosa, nasal cannula in place NECK : Supple, no tenderness CHEST : Decreased breath sounds , no tenderness HEART : RRR, no obvious murmurs ABDOMEN: Some distention, nontender EXTREMITIES : Minimal LE swelling, no LE tenderness, no other conspicuous deformities noted NEUROLOGIC : Coherent, no facial asymmetry, no other gross focality Principal Diagnosis Acute hypoxic respiratory failure due to COVID-19 pneumonia Discharge Exam General- WD/WN female, No acute distress Head- atraumatic Eyes- PERRL, EOMI, ENT- oropharynx clear Neck- supple, no JVD Lungs- CTAB, no wheezing, rhonchi, crackles Heart- regular rhythm; no murmur Abdomen- normal bowel sounds, soft, nontender Extremities- no calf tenderness Neuro- alert, oriented x 3; PERRL, EOMI; no facial palsy; no dysarthria, moves extremities Skin- warm & dry Discharge Data Allergies Allergy/AdvReac Type Severity Reaction Status Date / Time adhesive tape AdvReac Mild skin Verified 07/20/20 18:06 sensitive shrimp AdvReac Mild itching Verified 07/20/20 18:06 Ordered Studies 04/10/21 19:24 CT angio chest PE protocol Urgent FINDINGS: Old moderate compression deformity at T5 is again noted. There is a small hiatus hernia. Stable 1.3 cm hypodense lesion within the right hepatic lobe. This is likely benign given the long-term stability. No significant mediastinal or hilar lymphadenopathy. The heart remains mildly enlarged. No pleural or pericardial effusions. Normal caliber thoracic aorta with no evidence for dissection. No filling defects within the pulmonary arteries to suggest pulmonary embolus. No suspicious lytic or blastic osseous lesions. No pneumothorax. The central airways are patent. Multifocal groundglass airspace opacities consistent with a viral pneumonia. IMPRESSION: 1. No evidence for pulmonary embolus. 2. Multifocal groundglass airspace opacities. This favors a moderate viral pneumonia. Hospital Course (1) Acute hypoxemic respiratory failure: COVID-19 pneumonia Present on admission with worsening SOB and hypoxia She said that she was tested positive for COVID 19 at the end of June while in [place] Was in [place] Was not able to get vaccinated for COVID yet CTA chest showed no evidence for pulmonary embolus. Multifocal groundglass airspace opacities. This favors a moderate viral pneumonia. CXR showed bilateral airspace opacities, similar to prior chest CT and increased from prior chest radiograph. Will continue dexamethasone 6mg IV and remdesivir that started on admission Continue monitor LFT while on Remdesivir Not a candidate for Plasma convalescent since she was tested positive on 07/04 Doxycycline was starting as well in the ER for possible underlying superimposed bacterial infection Inflammatory markers trending down with ferritin 532-->511--> 477, ESR 29 -->26, CRP 8.3-->3.8 -->2.2 Continue oxygen supplement as needed Currently on RA But needs O2 at night, nocturnal pulse ox obtained Plan for discharge today Patient will need official outpatient sleep study to evaluate for possible sleep apnea or nocturnal hypoxia Hypertension BP stable Continue amlodipine Hypokalemia Now resolved Continue monitor BMP DVT px on Lovenox subq CODE STATUS FULL CODE Disposition discharge home today Total Time Total Time Spent Total Time Spent (In Minutes): 35 Total Time Includes: Examination of the Patient, Discharge Planning and Medication Reconciliation Discharge Plan Discharge Items Patient Disposition: Home - Self-Care Reason For Visit: RESP FAILURE COVID Discharge Diagnosis: Acute hypoxic respiratory failure due to COVID-19 pneumonia Activity: Per Instructions section Non-emergency contact: Primary Care Provider Call non-emergency contact if: you have any medication questions and your symptoms worsen Follow-up/Referrals: Wendi Kenney MD [Primary Care Provider] - (Date & Time 07/30/2020 11:00 AM Provider Wendi Kenney MD Department General Internal Medicine [facility] PLEASE NOTE THAT THIS IS A TELEHEALTH APPOINTMENT. PLEASE FOLLOW THE INSTRUCTIONS PROVIDED IN YOUR EMAIL. IF YOU HAVE ANY QUESTIONS REGARDING THIS APPOINTMENT, PLEASE CALL ) Diet: Heart Healthy Addtl Attending Provider Instructions: Please follow up with your primary care doctor, the appointment was scheduled for you for July 30. Use oxygen, 2 L via nasal cannula at night when sleeping. You will need formal outpatient evaluation for possible sleep apnea or nocturnal hypoxia. [employer] Systems Navigator Provider Instructions: Home Isolation COVID-19 Instructions The following information about Home Isolation is from the CDC Website: https://www.cdc.gov/coronavirus/2019-ncov/hcp/rmbhnonc-gbunxhy-echswb.html Stay home except to get medical care People who are mildly ill with COVID-19 are able to isolate at home during their illness. You should restrict activities outside your home, except for getting medical care. Do not go to work, school, or public areas. Avoid using public transportation, ride-sharing, or taxis. Separate yourself from other people and animals in your home People: As much as possible, you should stay in a specific room and away from other people in your home. Also, you should use a separate bathroom, if available. Animals: You should restrict contact with pets and other animals while you are sick with COVID-19, just like you would around other people. Although there have not been reports of pets or other animals becoming sick with COVID-19, it is still recommended that people sick with COVID-19 limit contact with animals until more information is known about the virus. When possible, have another member of your household care for your animals while you are sick. If you are sick with COVID-19, avoid contact with your pet, including petting, snuggling, being kissed or licked, and sharing food. If you must care for your pet or be around animals while you are sick, wash your hands before and after you interact with pets and wear a face mask. Call ahead before visiting your doctor If you have a medical appointment, call the healthcare provider and tell them that you have or may have COVID-19. This will help the healthcare providers office take steps to keep other people from getting infected or exposed. Wear a face mask You should wear a face mask when you are around other people (e.g., sharing a room or vehicle) or pets and before you enter a healthcare providers office. If you are not able to wear a face mask (for example, because it causes trouble breathing), then people who live with you should not stay in the same room with you, or they should wear a face mask if they enter your room. Cover your coughs and sneezes Cover your mouth and nose with a tissue when you cough or sneeze. Throw used tissues in a lined trash can. Immediately wash your hands with soap and water for at least 20 seconds or, if soap and water are not available, clean your hands with an alcohol-based hand bread slicer machine that contains at least 60% alcohol. Clean your hands often Wash your hands often with soap and water for at least 20 seconds, especially after blowing your nose, coughing, or sneezing; going to the bathroom; and before eating or preparing food. If soap and water are not readily available, use an alcohol-based hand bread slicer machine with at least 60% alcohol, covering all surfaces of your hands and rubbing them together until they feel dry. Soap and water are the best option if hands are visibly dirty. Avoid touching your eyes, nose, and mouth with unwashed hands. Avoid sharing personal household items You should not share dishes, drinking glasses, cups, eating utensils, towels, or bedding with other people or pets in your home. After using these items, they should be washed thoroughly with soap and water. Clean all high-touch surfaces everyday High touch surfaces include counters, tabletops, doorknobs, bathroom fixtures, toilets, phones, keyboards, tablets, and bedside tables. Also, clean any surfaces that may have blood, stool, or body fluids on them. Use a household cleaning spray or wipe, according to the label instructions. Labels contain instructions for safe and effective use of the cleaning product including precautions you should take when applying the product, such as wearing gloves and making sure you have good ventilation during use of the product. Monitor your symptoms Seek prompt medical attention if your illness is worsening (e.g., difficulty breathing).Beforeseeking care, call your healthcare provider and tell them that you have, or are being evaluated for, COVID-19. Put on a face mask before you enter the facility. These steps will help the healthcare providers office to keep other people in the office or waiting room from getting infected or exposed. Ask your healthcare provider to call the local or state health department. Persons who are placed under active monitoring or facilitated self- monitoring should follow instructions provided by their local health department or occupational health professionals, as appropriate. When working with your local health department check their available hours. If you have a medical emergency and need to call 911, notify the dispatch personnel that you have, or are being evaluated for COVID-19. If possible, put on a face mask before emergency medical services arrive. Discontinuing home isolation Patients with confirmed COVID-19 should remain under home isolation precautions until the risk of secondary transmission to others is thought to be low. The decision to discontinue home isolation precautions should be made on a aovd-sb-zcqc basis, in consultation with healthcare providers and state and [facility] health departments. Coronavirus disease 2019 (COVID-19) is a virus that causes a respiratory illness. It is caused by a coronavirus called 2019 novel coronavirus (2019- nCoV). There are many types of coronavirus. Coronaviruses are a very common cause of bronchitis. They may sometimes cause lung infection(pneumonia). Symptoms can range from mild to severe respiratory illness. These viruses are also foundin some animals. COVID-19 was first found in people in [facility], in late 2019. In 2020, several cases of COVID-19 have been confirmed in the [place] Public health officials are working to find the source. How the virus spreads is not yet fully known. It may be spread through droplets of fluid that a person coughs or sneezes into the air. It may be spread if you touch a surface with virus on it, such as a handle or object, and then touch your mouth. What are the symptoms of COVID-19? Some people have no symptoms or mild symptoms. Symptoms may appear 2 to 14 days after contact with the virus. Symptoms can include: Fever Coughing Trouble breathing What are possible complications from COVID-19? In many cases, this virus can cause infection (pneumonia) in both lungs. In some cases, this can cause . How is COVID-19 diagnosed? Your healthcare provider will ask about your symptoms. He or she will also ask about your recent travel and contact with sick people. Testing for the virus is only done through the CDC. If yourhealthcare provider thinks you may have COVID- 19, he or she will work with your local health department and the CDC on testing. Follow all instructions from your healthcare provider. COVID-19 is diagnosed by: Nasal and throat swab. A cotton-tipped swab is wiped inside your nose or throat. This is done to check for viruses in your nasal mucus. Sputum culture. A small sample of mucus coughed from your lungs (sputum) is collected if you have a cough. It is checked for the virus. How is COVID-19 treated? There is currently no medicine to treat the virus. Treatment is done to help your body while it fights the virus. This is known as supportive care. Supportive care may include: Pain medicine. These include acetaminophen and ibuprofen. They are used to help ease pain and reduce fever. Bed rest. This helps your body fight the illness. For severe illness, you may need to stay in the hospital. Care during severe illness may include: IV (intravenous) fluids.These are given through a vein to help keep your body hydrated. Oxygen. Supplemental oxygen or ventilation with a breathing machine (ventilator) may be given. This is done to keep enough oxygen in your body. Are you at risk for COVID-19? If youve been to a place where people have been sick with this virus, you are at risk for infection. You are at risk if you: Recently traveled to an affected area Had contact with a sick person who recently traveled to this area Had contact with a person who was diagnosed with COVID-19 How can COVID-19 be prevented? There is no vaccine yet. The best prevention is to not have contact with the virus. The CDC advises that people should not travel to areas where there are COVID-19 outbreaks right now for any reason that is not urgent. To help prevent spreading the infection, wash your hands often, or use an alcohol-basedhand bread slicer machine. If you are in an area with COVID-19: Wash your hands often. Or use an alcohol-based hand bread slicer machine often. Only touch your eyes, nose, or mouth with clean hands. Dont have contact with people who are sick. Follow local instructions about being in public. For example, you may be told to not use public transport for a period of time. Stay away from markets that have live or animals. Wash your hands after touching any animals. Don't touch animals that may be sick. Dont share eating or drinking tools with sick people. Dont kiss someone who is sick. Clean surfaces often with disinfectant. If you were in an area with COVID-19 in the last 14 days: Call your healthcare provider. He or she can talk with local health staff to see what action may be needed. Follow all instructions from your provider. Take your temperature every morning and evening for at least 14 days. This is to check for fever. Keep a record of the readings. Keep watch for symptoms of the virus. Tell your provider right away if you have symptoms. If you were in an area with COVID-19 and have a fever or other symptoms: Dont panic. Keep in mind that other illnesses can cause similar symptoms. Stay away from work, school, and public places. Limit physical contact with family members. Don't kiss anyone or share eating or drinking utensils. Clean surfaces you touch with disinfectant. This is to help prevent the virus from spreading. Call your healthcare provider. Explain that you have been exposed to COVID-19 and have symptoms. Do this before going to any hospital. Wait for instructions. Keep in mind that healthcare staff may wear protective equipment such as masks, gowns, gloves, and eye protection. You may be put in a separate room. This is to prevent the possible virus from spreading. Tell the healthcare staff about recent travel. This includes local travel on public transport. Staff may need to find other people you have been in contact with. Follow all instructions the healthcare staff give you. If you have been diagnosed with COVID-19 Follow all instructions from your healthcare provider. Dont leave your home, except to get medical care. Call your healthcare providers office before going. They can prepare and give you instructions. This will help prevent the virus from spreading. Dont go to work, school, or public areas. Dont use public transport or taxis. Stay away from other people in your home. Have them wear face masks around you. Dont share household items or food. Wear a face mask if you can. This includes at home or in a medical facility. Cover your face with a tissue when you cough or sneeze. Throw the tissue away. Wash your hands. Wash your hands often. Caregivers should: Follow all instructions from healthcare staff. Wear a face mask and protective clothing as advised. Wash hands often. Keep track of the sick persons symptoms. Clean surfaces, fabrics, and laundry thoroughly. Keep other people away from the sick person. When to call your healthcare provider Call your healthcare provider: If youve recently traveled and have symptoms If you have been diagnosed with COVID-19 and your symptoms are worse To learn more To find out more about COVID-19, visit the CDC website at www.cdc.gov/coronavirus/2019-ncov/index.html. [employer]. [address] [place] [address]. All rights reserved. This information is not intended as a substitute for professional medical care. Always follow your healthcare professional's instructions. This information has been adapted from [employer] Pending Studies at Discharge: No Stand-Alone Forms: My [facility] [employer], Smoking Cessation Medications and DC Order Prescriptions: Continued latanoprost 0.005 % Drops 1 drp OPB HS RF: 0 atorvastatin [Lipitor] 20 mg Tablet 20 mg PO HS RF: 0 lisinopril 20 mg Tablet 20 mg PO HS RF: 0 amlodipine [Norvasc] 10 mg Tablet 10 mg PO HS RF: 0 cholecalciferol (vitamin D3) [Vitamin D3] 1,000 unit Capsule 1,000 unit PO HS RF: 0 omeprazole magnesium [Prilosec OTC] 20 mg Tablet,Delayed Release (Dr/Ec) 20 mg PO HS RF: 0 Benefiber Healthy Shape 5 gram/7.4 gram Powder 0 g PO QAM RF: 0 aspirin [Aspirin Low Dose] 81 mg Tablet,Delayed Release (Dr/Ec) 81 mg PO HS RF: 0 Discharge Orders: Discharge Order (Routine); Ordered 07/25/20 Ordered By: Oleg Salinas Admission Data Admit Date/Time: 07/20/20 20:16 Attending Provider: Oleg Salinas Admit Provider: Francesco Redd Primary Care Provider: Wendi Kenney Other Providers: Genny Garcia Other Interventions: Discharge Summary Assessment (RN) Last Done: 07/25/20 12:21
== END 2020-07-25 16:11 | disposition home or self-care (01) | DRG 177 ==
LOC: ED 16:02 → 2N 20:16 → SUATTDRO 20:16 → 2N 22:18